=== PATIENT | female | born 1955 | race Caucasian/White ===

== ENCOUNTER → 2022-01-17 | Day surgery (SDC) | payer OTHER ==
[~2022-01-17] MED LIST: BUPROPION HCL100 M1 PO; HYDROCHLOROTHIA25 MG PO; LIPITOR TAB 1010 MG PO; PHYSICIANS1000 MCG/1 INJ; VITAMIN D21250 MCG PO
== END | disposition home or self-care (01) ==
LOC: OR 06:19
DX: Z12.11 Encounter for screening for malignant neoplasm of colon (principal); J45.909 Unspecified asthma, uncomplicated; I10 Essential (primary) hypertension; K21.9 Gastro-esophageal reflux disease without esophagitis; E78.5 Hyperlipidemia, unspecified; Z86.010 Personal history of colon polyps; Z80.0 Family history of malignant neoplasm of digestive organs; Z79.899 Other long term (current) drug therapy; Z20.822 Contact with and (suspected) exposure to COVID-19
CPT/HCPCS: J2704